=== PATIENT | female | born 1980 | race Caucasian/White ===

== ENCOUNTER 2018-08-06 04:50 | Emergency (ER) | payer BC ==
[2018-08-06] MEDS ORDERED: Albuterol/Ipratropium 3.0-0.5 MG/3 ML Neb Soln NEB ONE (05:18)
[2018-08-06 05:21] VITALS: BP 153/85
--- NOTE | 2018-08-06 05:42 | EDM.PDOC ---
ED HPI GENERAL MEDICAL PROBLEM - General Chief Complaint: Respiratory Problem Stated Complaint: Cough, upper chest pain, wheezing, bradshaw Time Seen by Provider: 08/06/18 05:18 Source of Information: Reports: Patient History Limitations: Reports: No Limitations - History of Present Illness INITIAL COMMENTS - FREE TEXT/NARRATIVE: Patient here with reports of cough since Monday with pain in the chest on inhalation and cough. Low grade temperatures, not febrile here. She has no other complaints and has not really used any OTC preparations or medications for symptom management. Denies headache, neck pain, SOB, abdominal pain. No urinary symptoms of pain or blood in urine. Denies blood in stool. Onset: Gradual Onset Date: 08/04/18 Location: Reports: Chest Severity: Mild Associated Symptoms: Reports: Cough, Fever/Chills Face/headache Pain Score (Numeric/FACES): 10 Upper mid chest Pain Score (Numeric/FACES): 9 - Related Data Allergies Allergy/AdvReac Type Severity Reaction Status Date / Time latex Allergy Swelling Verified 08/06/18 04:58 Penicillins Allergy Hives Verified 08/06/18 04:58 Home Meds: Home Meds Topiramate 100 mg PO BID 10/08/14 [History] Venlafaxine HCl [Venlafaxine ER] 150 mg PO DAILY 10/08/14 [History] Albuterol [Ventolin HFA] 2 puff IH Q4H PRN 08/06/18 [History] Past Medical History Respiratory History: Reports: Asthma Neurological History: Reports: Migraines Psychiatric History: Reports: Depression ED ROS GENERAL - Review of Systems Review Of Systems: See Below Constitutional: Reports: Fever HEENT: Reports: No Symptoms Respiratory: Reports: Pleuritic Chest Pain, Cough Cardiovascular: Reports: No Symptoms Endocrine: Reports: No Symptoms GI/Abdominal: Reports: No Symptoms : Reports: No Symptoms Musculoskeletal: Reports: No Symptoms Skin: Reports: No Symptoms Neurological: Reports: No Symptoms Psychiatric: Reports: No Symptoms Hematologic/Lymphatic: Reports: No Symptoms Immunologic: Reports: No Symptoms ED EXAM, GENERAL - Physical Exam Exam: See Below Exam Limited By: No Limitations General Appearance: Alert, WD/WN, No Apparent Distress Eye Exam: Bilateral Eye: EOMI, Normal Inspection, PERRL Ears: Normal TMs Nose: Normal Inspection, Normal Mucosa, No Blood Throat/Mouth: Normal Inspection, Normal Lips, Normal Teeth, Normal Gums, Normal Oropharynx, Normal Voice, No Airway Compromise Head: Atraumatic, Normocephalic Neck: Supple, Non-Tender, Full Range of Motion, Lymphadenopathy (R) Respiratory/Chest: No Respiratory Distress, Lungs Clear, Normal Breath Sounds, No Accessory Muscle Use, Chest Non-Tender Cardiovascular: Normal Peripheral Pulses, Regular Rate, Rhythm, No Edema, No Gallop, No JVD, No Murmur, No Rub Peripheral Pulses: 2+: Posterior Tibial (L), Posterior Tibial (R), Dorsalis Pedis (L), Dorsalis Pedis (R) GI/Abdominal: Normal Bowel Sounds, Soft, Non-Tender, No Organomegaly, No Distention, No Abnormal Bruit, No Mass Back Exam: Normal Inspection, Full Range of Motion, NT Extremities: Normal Inspection, Normal Range of Motion, Non-Tender, Normal Capillary Refill, No Pedal Edema Neurological: Alert, Oriented, CN II-XII Intact, Normal Cognition, Normal Gait, Normal Reflexes, No Motor/Sensory Deficits Psychiatric: Normal Affect, Normal Mood Skin Exam: Warm, Dry, Intact, Normal Color, No Rash Lymphatic: No Adenopathy Course - Vital Signs Last Recorded V/S: Last Vital Signs Temp 36.1 C 08/06/18 04:55 Pulse 106 H 08/06/18 04:55 Resp 18 08/06/18 04:55 BP 153/85 H 08/06/18 04:55 Pulse Ox 99 08/06/18 04:55 - Orders/Labs/Meds Orders: Active Orders 24 hr Category Date Time Status RT Aerosol Therapy [RC] ASDIRECTED Care 08/06/18 05:18 Ordered CBC WITH AUTO DIFF [HEME] Stat Lab 08/06/18 05:32 Ordered INFLUENZA A+B AG SCREEN [RM] Stat Lab 08/06/18 05:22 Ordered STREP SCRN A RAPID W CULT CONF [RM] Stat Lab 08/06/18 05:22 Ordered Meds: Medications Discontinued Medications Generic Name Dose Route Start Last Admin Trade Name Freq PRN Reason Stop Dose Admin Albuterol/Ipratropium 3 ml 08/06/18 05:18 Duoneb 3.0-0.5 Mg/3 Ml NEB 08/06/18 05:19 ONETIME ONE Departure - Departure Time of Disposition: 06:51 Disposition: Home, Self-Care 01 Condition: Good Clinical Impression: URI (upper respiratory infection) - Discharge Information *PRESCRIPTION DRUG MONITORING PROGRAM REVIEWED*: Not Applicable *COPY OF PRESCRIPTION DRUG MONITORING REPORT IN PATIENT GEOVANI: Not Applicable Instructions: Viral Respiratory Infection, [id number] Referrals: PCP,None [Primary Care Provider] - Additional Instructions: Plan 1. Stay well hydrated 2. As of now this does appear to be viral in nature 3. Use plenty of over the counter preparations like cough syrup, antihistamines/ decongestants, cool mist humidifier, nasal rinse, etc 4. Follow up with primary doctor later this week if not improving in the next 3- 5 days - Problem List & Annotations (1) URI (upper respiratory infection) SNOMED Code(s): 93714338 Code(s): J06.9 - ACUTE UPPER RESPIRATORY INFECTION, UNSPECIFIED Status: Acute Priority: Low Current Visit: Yes Qualifiers: URI type: unspecified viral URI Qualified Code(s): J06.9 - Acute upper respiratory infection, unspecified - Problem List Review Problem List Initiated/Reviewed/Updated: Yes - My Orders Last 24 Hours: My Active Orders 08/06/18 05:18 RT Aerosol Therapy [RC] ASDIRECTED 08/06/18 05:22 INFLUENZA A+B AG SCREEN [RM] Stat STREP SCRN A RAPID W CULT CONF [RM] Stat 08/06/18 05:32 CBC WITH AUTO DIFF [HEME] Stat - Assessment/Plan Last 24 Hours: My Active Orders 08/06/18 05:18 RT Aerosol Therapy [RC] ASDIRECTED 08/06/18 05:22 INFLUENZA A+B AG SCREEN [RM] Stat STREP SCRN A RAPID W CULT CONF [RM] Stat 08/06/18 05:32 CBC WITH AUTO DIFF [HEME] Stat Assessment:: viral upper respiratory infection Plan: Plan 1. Stay well hydrated 2. As of now this does appear to be viral in nature 3. Use plenty of over the counter preparations like cough syrup, antihistamines/ decongestants, cool mist humidifier, nasal rinse, etc 4. Follow up with primary doctor later this week if not improving in the next 3- 5 days
== END 2018-08-06 06:54 | disposition home or self-care (01) ==
LOC: VM.ED 04:50
DX: J06.9 Acute upper respiratory infection, unspecified (principal); J45.909 Unspecified asthma, uncomplicated; Z91.040 Latex allergy status; Z88.0 Allergy status to penicillin; Z79.899 Other long term (current) drug therapy
CPT/HCPCS: 36415; 85025; 87081; 87804; 87804-59; 87880-QW; 94640; 99283; J7620-GY

== ENCOUNTER 2018-09-15 18:39 | Emergency (ER) | payer BC ==
--- NOTE | 2018-09-15 18:49 | EDM.PDOC ---
<Amy Jones - Last Filed: 09/15/18 18:42> ED HPI GENERAL MEDICAL PROBLEM - General Chief Complaint: General Stated Complaint: fever, cough Time Seen by Provider: 09/15/18 18:40 Source of Information: Reports: Patient History Limitations: Reports: No Limitations - History of Present Illness INITIAL COMMENTS - FREE TEXT/NARRATIVE: Patient comes into the emergency department with complaint of cough, fever, nausea, and body aches. Patient states her symptoms started earlier today. She states that she has body aches severe cough and she's had a fever up to 103. She 's been taking Tylenol and ibuprofen throughout the day however she still has a fever of approximately 100. She denies having any relief of her symptoms with the Tylenol or ibuprofen. 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 She does state that she has had her influenza vaccine. Patient denies any chest pain, shortness of breath, abdominal discomfort, or swelling in the lower extremities. Patient states she was also diagnosed with [id number] on in the local clinic. She does not have any lesions on her hands or feet however she had a lesion on the back of her mouth she is miracle mouthwash. Onset: Sudden Severity: Moderate Improves with: Reports: None Worsens with: Reports: None Associated Symptoms: Reports: Cough, Fever/Chills, Loss of Appetite, Nausea/ Vomiting Treatments ANIMAL BEHAVIOURIST: Reports: Acetaminophen, Aspirin - Related Data Allergies Allergy/AdvReac Type Severity Reaction Status Date / Time latex Allergy Swelling Verified 09/15/18 19:00 Penicillins Allergy Hives Verified 09/15/18 19:00 Home Meds: Home Meds Topiramate 100 mg PO BID 10/08/14 [History] Venlafaxine HCl [Venlafaxine ER] 150 mg PO DAILY 10/08/14 [History] Albuterol [Ventolin HFA] 2 puff IH Q4H PRN 08/06/18 [History] Budesonide/Formoterol [Symbicort 160-4.5 MCG] 2 puff INH BID 09/15/18 [History] Diphenhyd/Lidocaine/Nystatin [Magic Mouthwash] 5 ml PO ASDIRECTED 09/15/18 [ History] Oseltamivir Phosphate 75 mg PO BID 3 Days #6 capsule 09/15/18 [Rx] Past Medical History Respiratory History: Reports: Asthma Neurological History: Reports: Migraines Psychiatric History: Reports: Depression ED ROS GENERAL - Review of Systems Review Of Systems: See Below Constitutional: Reports: Fever, Chills, Malaise, Weakness, Fatigue, Decreased Appetite HEENT: Reports: No Symptoms Respiratory: Reports: Pleuritic Chest Pain, Cough Cardiovascular: Reports: No Symptoms Endocrine: Reports: No Symptoms GI/Abdominal: Reports: Nausea : Reports: No Symptoms Musculoskeletal: Reports: No Symptoms Skin: Reports: No Symptoms Neurological: Reports: No Symptoms Psychiatric: Reports: No Symptoms Hematologic/Lymphatic: Reports: No Symptoms Immunologic: Reports: No Symptoms ED EXAM, GENERAL - Physical Exam Exam: See Below Exam Limited By: No Limitations General Appearance: Alert, WD/WN, No Apparent Distress Head: Atraumatic, Normocephalic Neck: Normal Inspection, Supple, Non-Tender, Full Range of Motion Respiratory/Chest: No Respiratory Distress, Lungs Clear, Normal Breath Sounds, No Accessory Muscle Use, Chest Non-Tender Cardiovascular: Normal Peripheral Pulses, Regular Rate, Rhythm, No Edema, No Murmur Peripheral Pulses: 2+: Radial (L), Radial (R) GI/Abdominal: Normal Bowel Sounds, Soft, Non-Tender, No Distention, No Abnormal Bruit Back Exam: Normal Inspection, Full Range of Motion Extremities: Normal Inspection, Normal Range of Motion, Normal Capillary Refill Neurological: Alert, Oriented Psychiatric: Normal Affect, Normal Mood Skin Exam: Warm, Dry, Intact, Normal Color Course - Vital Signs Last Recorded V/S: Last Vital Signs Temp 37.7 C 09/15/18 18:47 Pulse 116 H 09/15/18 18:47 Resp 20 09/15/18 18:47 BP 136/95 H 09/15/18 18:47 Pulse Ox 99 09/15/18 18:47 - Orders/Labs/Meds Orders: Active Orders 24 hr Category Date Time Status EKG Documentation Completion [RC] STAT Care 09/15/18 18:47 Active CBC WITH AUTO DIFF [HEME] Stat Lab 09/15/18 19:11 Results COMPREHENSIVE METABOLIC PN,CMP [CHEM] Stat Lab 09/15/18 19:11 Received CULTURE BLOOD [BC] Stat Lab 09/15/18 19:11 Received CULTURE BLOOD [BC] Stat Lab 09/15/18 19:17 Received INFLUENZA A+B AG SCREEN [RM] Stat Lab 09/15/18 18:44 Received LACTIC ACID [CHEM] Stat Lab 09/15/18 19:11 Received MANUAL DIFFERENTIAL QA/NC [HEME] Stat Lab 09/15/18 19:11 Results TROPONIN I [CHEM] Stat Lab 09/15/18 19:11 Received Blood Culture x2 Reflex Set [OM.PC] Stat Oth 09/15/18 18:47 Ordered Labs: Laboratory Tests 09/15/18 Range/Units 19:11 WBC 4.5 (4.0-10.0) x10^3/uL RBC 5.02 (4.00-5.50) x10^6/uL Hgb 14.6 (12.0-16.0) g/dL Hct 45.4 (33.0-47.0) % MCV 90.4 (78.0-93.0) fL MCH 29.1 (26.0-32.0) pg MCHC 32.2 (32.0-36.0) g/dL RDW Coeff of Aspen 13.6 (10.0-15.0) % Plt Count 249 (130-400) x10^3/uL Add Manual Diff Yes Meds: Medications Discontinued Medications Generic Name Dose Route Start Last Admin Trade Name Rosy PRN Reason Stop Dose Admin Azithromycin 1,000 mg 09/15/18 18:52 09/15/18 18:57 Zithromax PO 09/15/18 18:53 1,000 mg ONETIME ONE Administration Ondansetron HCl 4 mg 09/15/18 18:42 09/15/18 18:55 Zofran Odt PO 09/15/18 18:43 4 mg ONETIME ONE Administration Departure - Departure Disposition: Home, Self-Care 01 Clinical Impression: Influenza A - Discharge Information Prescriptions: Oseltamivir Phosphate 75 mg PO BID 3 Days #6 capsule Instructions: Influenza, Adult Referrals: Breonna Pace DO [Primary Care Provider] - Forms: ED Department Discharge Additional Instructions: 1. STAY WELL HYDRATED AND REST 2. TAKE TAMIFLU FOR THE FULL COARSE, EVEN IF YOU ARE FEELING BETTER 3. LOTS OF WATER 4. TYLENOL FOR PAIN/FEVER 5. NO WORK UNTIL FEVER IS GONE FOR 24 HOURS 6. WASH HANDS FREQUENTLY 7. COVER YOUR COUGH 8. SEE YOUR PCP SYMPTOMS WARRANT - Problem List Review Problem List Initiated/Reviewed/Updated: Yes - Assessment/Plan Assessment:: 1. fever Plan: 1. Labs ordered in ER 2. EKG ordered in ER 3. Sepsis protocol followed 4. Pt is allergic to the penicillin class with history of rash. Will give a azithromycin to start 5. Influenza swab completed 6. Care transferred to [facility] who will assume care. <[facility] - Last Filed: 09/15/18 19:38> ED HPI GENERAL MEDICAL PROBLEM Generalized Pain Score (Numeric/FACES): 9 EKG INTERPRETATION EKG Date: 09/15/18 Time: 19:20 Rhythm: NSR Rate (Beats/Min): 97 [place]: Normal P-Wave: Present QRS: LBBB ST-T: Normal QT: Normal DC/PQ Interval: 0.13 EKG Interpretation Comments: 1. NSR 2. LBBB Course - Orders/Labs/Meds Labs: Laboratory Tests 09/15/18 Range/Units 19:11 WBC 4.5 (4.0-10.0) x10^3/uL RBC 5.02 (4.00-5.50) x10^6/uL Hgb 14.6 (12.0-16.0) g/dL Hct 45.4 (33.0-47.0) % MCV 90.4 (78.0-93.0) fL MCH 29.1 (26.0-32.0) pg MCHC 32.2 (32.0-36.0) g/dL RDW Coeff of Aspen 13.6 (10.0-15.0) % Plt Count 249 (130-400) x10^3/uL Add Manual Diff Yes Departure - Departure Time of Disposition: 19:35 Condition: Good - Discharge Information *PRESCRIPTION DRUG MONITORING PROGRAM REVIEWED*: Not Applicable *COPY OF PRESCRIPTION DRUG MONITORING REPORT IN PATIENT GEOVANI: Not Applicable - Assessment/Plan Assessment:: 2. Influenza A Plan: Patient will be started on Tamiflu BID for 5 days. Discussed proper hygiene with influenza. Cover cough. Wash hands frequently. Follow up with PCP as symptoms warrant.
[2018-09-15 18:50] VITALS: BP 136/95
[2018-09-15] MEDS: Ondansetron 4 MG Tab.DIS PO ONE (18:55)
[2018-09-15] MEDS: Azithromycin 250 MG Tab PO ONE (18:57)
[2018-09-15] MEDS: Take Home: Oseltamivir 75 MG Cap, 2 Cap Pack PO ONE (19:43)
[2018-09-15 19:45] LABS: CHLORIDE,CL 106 mmol/L (98-107); SODIUM,NA 139 mmol/L (136-145)
[2018-09-15 19:46] LABS: ANION GAP 17.8 mmol/L (10-20)
== END 2018-09-15 19:46 | disposition home or self-care (01) ==
LOC: VM.ED 18:39
DX: J10.1 Influenza due to other identified influenza virus with other respiratory manifestations (principal)
CPT/HCPCS: 36415; 80053; 83605; 84484; 85025; 87040; 87804; 93005; 99283; A9270

== ENCOUNTER 2021-03-15 07:53 | Emergency (ER) | payer BC ==
--- NOTE | 2021-03-15 08:48 | EDM.PDOC ---
ED HPI GENERAL MEDICAL PROBLEM - General Chief Complaint: Chest Pain Stated Complaint: HI BP Time Seen by Provider: 03/15/21 07:55 Source of Information: Reports: Patient, Family History Limitations: Reports: No Limitations - History of Present Illness INITIAL COMMENTS - FREE TEXT/NARRATIVE: Patient states her pacemaker went off this morning with a shock approximately 3 AM waking her up she was able to go back to sleep afterwards. She got up later to go to work when she went to work coworkers told her that she was flushed and red face she went to the nurse had a blood pressure check said she was hypertensive and was told to come here to the ER she presents here to the ER with midsternal chest pain sharp 4 out of 10 nonradiating with some shortness of breath no nausea vomiting diaphoresis she states this feels about how her normal chest pain is when she gets shocks which is usually about once a month. She had a pacemaker implanted since 1999 and states he goes off quite often usually feels about the same way the last one was about 1 month ago it was placed secondary to arrhythmias she is unsure which one. She had a cardiology appointment approximately 2 weeks ago with a normal checkup She has had no other problems or issues since her visit she has no other complaints at this moment She states she was recently taken off of Coumadin and is no longer on any blood thinners at this time. Duration: Hour(s): Location: Reports: Chest Quality: Reports: Burning, Stabbing, Throbbing Severity: Mild Improves with: Reports: None Associated Symptoms: Reports: Shortness of Breath Treatments ARTIST SCIENTIFIC: Denies: Acetaminophen, Aspirin - Related Data Allergies Allergy/AdvReac Type Severity Reaction Status Date / Time latex Allergy Swelling Verified 09/15/18 19:00 Penicillins Allergy Hives Verified 09/15/18 19:00 Home Meds: Home Meds Topiramate 100 mg PO BID 10/08/14 [History] Venlafaxine HCl [Venlafaxine ER] 150 mg PO DAILY 10/08/14 [History] Albuterol [Ventolin HFA] 2 puff IH Q4H PRN 08/06/18 [History] Budesonide/Formoterol [Symbicort 160-4.5 MCG] 2 puff INH BID 09/15/18 [History] Diphenhyd/Lidocaine/Nystatin [Magic Mouthwash] 5 ml PO ASDIRECTED 09/15/18 [History] Oseltamivir Phosphate 75 mg PO BID 3 Days #6 capsule 09/15/18 [Rx] Past Medical History Respiratory History: Reports: Asthma Neurological History: Reports: Migraines Psychiatric History: Reports: Depression ED ROS GENERAL - Review of Systems Review Of Systems: See Below Constitutional: Reports: No Symptoms HEENT: Reports: No Symptoms Respiratory: Reports: Shortness of Breath Cardiovascular: Reports: Chest Pain, Blood Pressure Problem. Denies: Claudication, Dyspnea on Exertion, Edema, Lightheadedness, Orthopnea, Palpitations, Syncope Endocrine: Reports: No Symptoms GI/Abdominal: Reports: No Symptoms : Reports: No Symptoms Musculoskeletal: Reports: Muscle Pain Skin: Reports: No Symptoms Neurological: Reports: No Symptoms. Denies: Confusion, Dizziness, Headache, Numbness, Paresthesia, Pre-Existing Deficit, Syncope, Weakness, Change in Speech Psychiatric: Reports: No Symptoms Hematologic/Lymphatic: Reports: No Symptoms Immunologic: Reports: No Symptoms ED EXAM, GENERAL - Physical Exam Exam: See Below Exam Limited By: No Limitations General Appearance: Alert, WD/WN, No Apparent Distress Eye Exam: Bilateral Eye: EOMI, Normal Inspection, PERRL Nose: Normal Inspection, Normal Mucosa, No Blood Throat/Mouth: Normal Inspection, Normal Lips, Normal Teeth, Normal Gums, Normal Oropharynx, Normal Voice, No Airway Compromise Head: Atraumatic, Normocephalic Neck: Normal Inspection, Supple, Non-Tender, Full Range of Motion Respiratory/Chest: No Respiratory Distress, Lungs Clear, Normal Breath Sounds, No Accessory Muscle Use. No: Chest Non-Tender Cardiovascular: Normal Peripheral Pulses, Regular Rate, Rhythm, No Edema, No Gallop, No JVD, No Murmur, No Rub GI/Abdominal: Normal Bowel Sounds, Soft, Non-Tender, No Organomegaly, No D istention, No Abnormal Bruit Back Exam: Normal Inspection, Full Range of Motion Extremities: Normal Inspection, Normal Range of Motion, Non-Tender, No Pedal Edema, Normal Capillary Refill Neurological: Alert, Oriented, CN II-XII Intact, Normal Cognition, Normal Gait, Normal Reflexes, No Motor/Sensory Deficits, Other (Patient noted sit on the bed watching TV upon exam no acute distress noted) Psychiatric: Normal Affect, Normal Mood Skin Exam: Warm, Dry, Intact, Normal Color, No Rash Course - Vital Signs Text/Narrative:: CBC BMP coags troponin CK-MB EKG chest x-ray aspirin x4 Lab work within normal limits will order second 3-hour troponin Second lab work from troponin discussed with Dr. MARES the patient's primary care provider ladle cleaner says she is okay with her being discharged and will see her outpatient in clinic Patient was rechecked no chest pain at this time she is okay with disposition and discharge - Orders/Labs/Meds Labs: Laboratory Tests 03/15/21 03/15/21 03/15/21 Range/Units 08:31 08:31 08:31 WBC 8.6 (4.0-10.0) x10^3/uL RBC 5.03 (4.00-5.50) x10^6/uL Hgb 14.0 (12.0-16.0) g/dL Hct 43.3 (33.0-47.0) % MCV 86.1 (78.0-93.0) fL MCH 27.8 (26.0-32.0) pg MCHC 32.3 (32.0-36.0) g/dL RDW Coeff of Aspen 13.0 (10.0-15.0) % Plt Count 321 (130-400) x10^3/uL Immature Gran % (Auto) 0.90 H (0.00-0.43) % Neut % (Auto) 70.7 (50.0-80.0) % Lymph % (Auto) 22.0 L (25.0-50.0) % [place] % (Auto) 6.2 (2.0-11.0) % Eos % (Auto) 0.0 (0.0-4.0) % Baso % (Auto) 0.2 (0.2-1.2) % Neut # (Auto) 6.0 (1.8-7.7) x10^3/uL Lymph # (Auto) 1.9 (1.0-4.8) x10^3/uL [place] # (Auto) 0.5 (0.0-0.8) x10^3/uL Eos # (Auto) 0.0 (0.0-0.5) x10^3/uL Baso # (Auto) 0.0 (0.0-0.2) x10^3/uL Immature Gran # (Auto) 0.08 H (0.00-0.07) x10^3/uL Sodium 139 (136-145) mmol/L Potassium 4.8 (3.5-5.1) mmol/L Chloride 106 (98-107) mmol/L Carbon Dioxide 24 (21-32) mmol/L Anion Gap 13.8 (5-15) mmol/L BUN 16 (7-18) mg/dL Creatinine 0.9 (0.55-1.02) mg/dL Est Cr Clr Drug Dosing TNP Estimated GFR (MDRD) > 60 Glucose 121 H (70-99) mg/dL Calcium 8.8 (8.5-10.1) mg/dL Creatine Kinase 69 (26-192) U/L Troponin I High Sens < 4 (<=51) ng/L 03/15/21 Range/Units 11:28 WBC (4.0-10.0) x10^3/uL RBC (4.00-5.50) x10^6/uL Hgb (12.0-16.0) g/dL Hct (33.0-47.0) % MCV (78.0-93.0) fL MCH (26.0-32.0) pg MCHC (32.0-36.0) g/dL RDW Coeff of [place] (10.0-15.0) % Plt Count (130-400) x10^3/uL Immature Gran % (Auto) (0.00-0.43) % Neut % (Auto) (50.0-80.0) % Lymph % (Auto) (25.0-50.0) % [place] % (Auto) (2.0-11.0) % Eos % (Auto) (0.0-4.0) % Baso % (Auto) (0.2-1.2) % Neut # (Auto) (1.8-7.7) x10^3/uL Lymph # (Auto) (1.0-4.8) x10^3/uL [place] # (Auto) (0.0-0.8) x10^3/uL Eos # (Auto) (0.0-0.5) x10^3/uL Baso # (Auto) (0.0-0.2) x10^3/uL Immature Gran # (Auto) (0.00-0.07) x10^3/uL Sodium (136-145) mmol/L Potassium (3.5-5.1) mmol/L Chloride (98-107) mmol/L Carbon Dioxide (21-32) mmol/L Anion Gap (5-15) mmol/L BUN (7-18) mg/dL Creatinine (0.55-1.02) mg/dL Est Cr Clr Drug Dosing Estimated GFR (MDRD) Glucose (70-99) mg/dL Calcium (8.5-10.1) mg/dL Creatine Kinase (26-192) U/L Troponin I High Sens 6 (<=51) ng/L Departure - Departure Time of Disposition: 12:30 Disposition: Home, Self-Care 01 Condition: Good Clinical Impression: Chest pain, Pacemaker Forms: ED Department Discharge - Problem List & Annotations (1) Chest pain SNOMED Code(s): 39083891 Code(s): R07.9 - CHEST PAIN, UNSPECIFIED Status: Acute Current Visit: Yes (2) Pacemaker SNOMED Code(s): 279204421 Code(s): Z95.0 - PRESENCE OF CARDIAC PACEMAKER Status: Acute Current Visit: Yes
[2021-03-15 09:02] LABS: CHLORIDE,CL 106 mmol/L (98-107); SODIUM,NA 139 mmol/L (136-145)
[2021-03-15 09:03] LABS: ANION GAP 13.8 mmol/L (5-15)
--- NOTE | 2021-03-15 11:24 | CR ---
[id number] RAD/RAD Chest PA or AP 1V Exam: RAD Chest PA or AP 1V Indication:CHEST PAIN. Comparison: No prior imaging for comparison. Discussion/Impression: Linear opacity projects over the superior cardiac border. Correlate for history of prior atrial appendage clipping. Chest is otherwise normal in appearance. Randolph Sue MD 03/15/21 1123 Thank you for allowing us to participate in the care of your patient.
== END 2021-03-15 12:41 | disposition home or self-care (01) ==
LOC: VM.ED 07:53
DX: R07.2 Precordial pain (principal); J45.909 Unspecified asthma, uncomplicated; I10 Essential (primary) hypertension; Z88.0 Allergy status to penicillin; Z91.040 Latex allergy status; Z95.0 Presence of cardiac pacemaker; Z79.899 Other long term (current) drug therapy
CPT/HCPCS: 36415; 71045; 80048; 82550; 84484; 85025; 99284; 99284-25

== ENCOUNTER 2021-10-07 14:15 | Emergency (ER) | payer OTHER, BC ==
[2021-10-07 14:44] VITALS: BP 109/61; PULSE 79
== END 2021-10-07 15:50 | disposition home or self-care (01) ==
LOC: VM.ED 14:15
DX: S20.212A Contusion of left front wall of thorax, initial encounter (principal); Z95.0 Presence of cardiac pacemaker; Z88.0 Allergy status to penicillin; Z91.040 Latex allergy status; W50.0XXA Accidental hit or strike by another person, initial encounter
CPT/HCPCS: 71046; 93005; 99283; 99284-25

== ENCOUNTER 2023-01-02 05:00 | Emergency (ER) | payer BC ==
[2023-01-02 05:25] VITALS: BP 138/73; PULSE 96
[2023-01-02] MEDS ORDERED: Ketorolac 30 MG/ML SDV IM ONE (05:28)
[2023-01-02] MEDS ORDERED: diphenhydrAMINE 50 MG/ML SDV IM ONE (05:28)
[2023-01-02] MEDS ORDERED: Prochlorperazine 10 MG/2 ML SDV IM ONE (05:28)
== END 2023-01-02 05:57 | disposition home or self-care (01) ==
LOC: VM.ED 05:00
DX: G43.909 Migraine, unspecified, not intractable, without status migrainosus (principal); J45.909 Unspecified asthma, uncomplicated; Z88.0 Allergy status to penicillin; Z91.040 Latex allergy status
CPT/HCPCS: 96372; 99283; J0780; J1200; J1885

== ENCOUNTER 2023-01-22 06:35 | Emergency (ER) | payer BC ==
[2023-01-22] MEDS ORDERED: Metoclopramide 10 MG/2 ML SDV IVPUSH ONE (06:46)
[2023-01-22] MEDS ORDERED: Sodium Chloride 0.9% 10 ML Syringe FLUSH PRN (06:46)
[2023-01-22] MEDS ORDERED: diphenhydrAMINE 50 MG/ML SDV IVPUSH ONE (06:46)
[2023-01-22] MEDS ORDERED: Ketorolac 15 MG/ML SDV IVPUSH ONE (06:47)
[2023-01-22 07:43] VITALS: BP 154/88; PULSE 92
== END 2023-01-22 07:52 | disposition home or self-care (01) ==
LOC: VM.ED 06:35
DX: G43.909 Migraine, unspecified, not intractable, without status migrainosus (principal); J45.909 Unspecified asthma, uncomplicated; Z95.0 Presence of cardiac pacemaker
CPT/HCPCS: 96374; 96375; 99283; J1200; J1885; J2765

== ENCOUNTER 2023-01-26 06:52 | Emergency (ER) | payer BC ==
[2023-01-26 07:06] VITALS: BP 135/67; PULSE 86
[2023-01-26] MEDS: Ketorolac 30 MG/ML SDV IVPUSH ONE (07:16)
[2023-01-26] MEDS: diphenhydrAMINE 50 MG/ML SDV IV ONE (07:16)
[2023-01-26] MEDS: Ondansetron 4 MG/2 ML SDV IVPUSH ONE (07:16)
== END 2023-01-26 07:57 | disposition home or self-care (01) ==
LOC: VM.ED 06:52
DX: G43.909 Migraine, unspecified, not intractable, without status migrainosus (principal); J45.909 Unspecified asthma, uncomplicated; Z91.040 Latex allergy status; Z88.0 Allergy status to penicillin
CPT/HCPCS: 96374; 96375; 99283-25; 99284; J1200; J1885; J2405

== ENCOUNTER 2023-02-04 06:58 | Emergency (ER) | payer BC ==
[2023-02-04] MEDS ORDERED: Orphenadrine 60 MG/2 ML Inj IM ONE (07:09)
[2023-02-04] MEDS ORDERED: Ketorolac 30 MG/ML SDV IM ONE (07:09)
== END 2023-02-04 07:50 | disposition home or self-care (01) ==
LOC: VM.ED 06:58
DX: M54.50 Low back pain, unspecified (principal); J45.909 Unspecified asthma, uncomplicated; Z95.0 Presence of cardiac pacemaker; Z79.899 Other long term (current) drug therapy; Z88.0 Allergy status to penicillin; Z91.040 Latex allergy status
CPT/HCPCS: 96372; 99283; J1885; J2360

== ENCOUNTER 2023-02-19 06:15 | Emergency (ER) | payer BC ==
[2023-02-19 06:36] VITALS: BP 136/81; PULSE 92
[2023-02-19] MEDS ORDERED: Ketorolac 30 MG/ML SDV IM ONE (06:40)
[2023-02-19] MEDS ORDERED: diphenhydrAMINE 50 MG/ML SDV IM ONE (06:40)
[2023-02-19] MEDS ORDERED: Prochlorperazine 10 MG/2 ML SDV IM ONE (06:41)
== END 2023-02-19 07:11 | disposition home or self-care (01) ==
LOC: VM.ED 06:15
DX: G43.909 Migraine, unspecified, not intractable, without status migrainosus (principal); J45.909 Unspecified asthma, uncomplicated; Z88.0 Allergy status to penicillin; Z91.040 Latex allergy status
CPT/HCPCS: 96372; 99283; J0780; J1200; J1885

== ENCOUNTER 2023-03-05 05:40 | Emergency (ER) | payer BC ==
[2023-03-05] MEDS ORDERED: Ketorolac 30 MG/ML SDV IM ONE (05:47)
[2023-03-05] MEDS ORDERED: diphenhydrAMINE 50 MG/ML SDV IM ONE (05:47)
[2023-03-05] MEDS ORDERED: Prochlorperazine 10 MG/2 ML SDV IM ONE (05:47)
[2023-03-05 05:50] VITALS: BP 150/71; PULSE 74
== END 2023-03-05 06:16 | disposition home or self-care (01) ==
LOC: VM.ED 05:40
DX: G43.909 Migraine, unspecified, not intractable, without status migrainosus (principal); J45.909 Unspecified asthma, uncomplicated; Z95.0 Presence of cardiac pacemaker; Z88.0 Allergy status to penicillin; Z91.040 Latex allergy status; Z79.899 Other long term (current) drug therapy
CPT/HCPCS: 96372; 99283; J0780; J1200; J1885

== ENCOUNTER 2023-11-25 19:21 | Emergency (ER) | payer BC, MEDICAID ==
[2023-11-25 19:36] VITALS: BP 148/78; PULSE 89
[2023-11-25] MEDS: Prochlorperazine 10 MG/2 ML SDV IM ONE (19:38)
[2023-11-25] MEDS: diphenhydrAMINE 50 MG/ML SDV IM ONE (19:38)
[2023-11-25] MEDS: Ketorolac 30 MG/ML SDV IM ONE (19:38)
== END 2023-11-25 20:22 | disposition home or self-care (01) ==
LOC: VM.ED 19:21
DX: G43.909 Migraine, unspecified, not intractable, without status migrainosus (principal); J45.909 Unspecified asthma, uncomplicated; Z91.040 Latex allergy status; Z88.0 Allergy status to penicillin; Z79.899 Other long term (current) drug therapy; Z95.0 Presence of cardiac pacemaker; Z79.51 Long term (current) use of inhaled steroids
CPT/HCPCS: 96372; 99283; J0780; J1200; J1885